=== PATIENT | female | born 1950 | race Caucasian/White ===

== ENCOUNTER 2020-10-30 17:39 | Emergency (ER) | payer MEDICARE ==
[~2020-10-30] VITALS: Ht 157.5 cm; Wt 59.1 kg
[2020-10-30 17:47] VITALS: BP 119/77
== END 2020-10-30 18:26 | disposition left against medical advice (07) ==
LOC: EMS 17:39
DX: R05 Cough (principal); Z53.21 Procedure and treatment not carried out due to patient leaving prior to being seen by health care provider